=== PATIENT | male | born 1970 | race Caucasian/White ===

== ENCOUNTER 2016-06-08 08:59 | Emergency (ER) | payer OTHER ==
[~2016-06-08] VITALS: Ht 195.6 cm; Wt 163.3 kg
[2016-06-08] MEDS ORDERED: HYDROCODONE-APA1 TA1 PO (10:05)
[2016-06-08 11:40] VITALS: BP 130/78
== END 2016-06-08 11:48 | disposition home or self-care (01) ==
LOC: ER 08:59
DX: S92.344A Nondisplaced fracture of fourth metatarsal bone, right foot, initial encounter for closed fracture (principal); X58.XXXA Exposure to other specified factors, initial encounter; Y93.67 Activity, basketball; Y92.89 Other specified places as the place of occurrence of the external cause; Y99.9 Unspecified external cause status